=== PATIENT | female | born 1935 | race Two or more races ===

== ENCOUNTER → 2016-11-09 | Outpatient (CLI) | payer MEDICARE, OTHER ==
[~2016-11-09] MED LIST: AVANDIA4 MG PO; BACTRIM DS 8001 TA1 PO; CALCIUM 600/VIT1 CAP PO; CHEWABLE ASPIRI81 MG PO; COLACE100 MG/10 PO; FLONASE 50 MCG16 GM; GABAPENTIN100 M1 PO; GABAPENTIN300 M1 PO; HYDROCHLOROTHIA25 M1 PO; K-DUR 20MEQ TA20 MEQ PO; LASIX20 MG PO; LISINOPRIL2.5 MG PO; LORAZEPAM1 MG/TABLE PO; MELATONIN1 M1 PO; MELOXICAM15 MG PO; METFORMIN500 MG PO; MULTIVITAMIN1 TA1 PO; MYSOLINE50 MG PO; OMEPRAZOLE40 MG PO; OSCAL ULTRA 6001 TA1 PO; OXYCODONE5 MG PO; PRAVASTATIN40 MG PO; SURFAK 240MG C240 MG PO; TRAZODONE50 MG PO; VANCOMYCIN 101000 MG IV; XALATAN 0.005%2.5 ML OP
--- NOTE | 2016-11-09 12:46 | RADIOLOGY REPORT PS360 ---
FOOT-LT-3 VIEWS HISTORY: CELLULITIS OF LEFT FOOT ORDERING PHYSICIAN: ELOY WHITEHEAD APRN PATIENT AGE: 81 years COMPARISON: None FINDINGS: There are mild osteoarthritic changes of the first metatarsophalangeal joint. A small subarticular cyst is present involving the distal aspect of the first metatarsal 5 mm. There is an old fracture of the distal aspect of the third, fourth, and fifth metatarsals and of the proximal phalanx of the fifth digit. There is pes planus No acute fracture or dislocation. No lytic or blastic change. No convincing evidence of acute osteomyelitis.. IMPRESSION: 1. 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 2. Pes planus. 3. No acute erosive changes evident that would indicate osteomyelitis
== END ==
LOC: RAD 11:12
DX: L03.032 Cellulitis of left toe (principal)